=== PATIENT | female | born 1955 | race Caucasian/White ===

== ENCOUNTER 2017-06-20 09:48 | Inpatient (IN) | payer OTHER ==
[~2017-06-20] VITALS: Ht 167.6 cm; Wt 93.0 kg
[2017-06-26] MEDS ORDERED: IBUPROFEN200 M1 PO (15:52)
[2017-06-26] MEDS ORDERED: GARLIC1 EAC1 PO (15:52)
[2017-06-26] MEDS ORDERED: LEVOTHYROXINE50 MCG PO (15:53)
[2017-06-26] MEDS ORDERED: TURMERIC500 M2 PO (15:53)
[2017-06-26] MEDS ORDERED: MULTIVITAMINS1 EAC7 PO (15:53)
[2017-06-26] MEDS ORDERED: VITAMIN C500 M1 PO (15:54)
--- NOTE | 2017-06-26 16:23 | NUR ---
PT HERE TODAY FOR PREOP VISIT. ACCOMPANIED BY HER EUSEBIO. PT STATES SHE HAS A FRONT WHEELED WALKER THAT HAS A SEAT AND BRAKES. THERE ARE EIGHT STEPS INTO THE HOME AND HAND RAILES ON BOTH SIDES. THERE ARE NO STEPS IN THE HOME. THE PATIENT HAS A WALK IN SHOWER, SHOWER BENCH AND A TALL TOILET. THERE IS NO HAND HELD SHOWER HEAD. SPOKE WITH PT ABOUT GETTING A ONE TO HELP WITH SHOWERING ONCE SHE IS HOME. PATIENT WOULD LIKE TO HAVE PHYSICAL THERAPY AT [facility] SINCE SHE LIVES IN [place]. HER IS THE ONE WHO WILL BE TRANSPORTING HER HOME WHEN SHE IS DISCHARGED AND TO HER APPOINTMENTS.
--- NOTE | 2017-07-02 10:53 | NUR ---
07/02/17 1053 Veronica Stinson 1045: OXYGEN SATURATION REMAINS 100% ON 10L VIA MASK. OXYGEN REDUCED TO 8L VIA MASK. 1050: OXGYEN SATURATION REMAINS 100% ON 8L VIA MASK. OXYGEN REDUCED TO 6L VIA MASK. 1052: PT AWAKE. ORAL AIRWAY IS REMOVED BY RN.
--- NOTE | 2017-07-02 12:00 | NUR ---
pt reports ache-y feeling in body but no real pain. drowsy. drifting in and out of sleep. 2L o2 via nc in place. continuous pulse ox on. tranexemic acid infusing now. no continuous IVF ordered.
--- NOTE | 2017-07-02 12:44 | NUR ---
PT RESTING COMFORTABLY IN BED. 2L [address] SATURATING 97%. ORDERED CLEAR LIQUID TRAY.
--- NOTE | 2017-07-02 14:32 | NUR ---
PT UP TO COMMODE 1PA WITH FWW. INCONTINENT EPISODE OF URINE DURING TRANSFER. NEW TEDS/SCDs/SOCKS PROVIDED. BACK TO BED NOW WITH VISITOR AT BEDSIDE.
--- NOTE | 2017-07-02 15:05 | NUR ---
PATIENT SITTING UP IN BED RN AND IN ROOM. FRESH ICE WATER GIVEN. ICE IN CRYO. CALL BUTTON IN REACH. NO OTHER NEEDS AT THIS TIME.
--- NOTE | 2017-07-02 16:35 | NUR ---
PT RESTING QUIETLY IN BED. WILL GET PT UP TO URINATE AGAIN AFTER DINNER. NEW BAG D5LR HUNG NOW
--- NOTE | 2017-07-02 17:49 | NUR ---
2L 02 VIA NC. S/L LAC. TOLERATING REGULAR DIET. 1PA WITH FWW. INCONTINENT AT TIMES. BED CHANGED X2. ANCEF X2 MORE. TORADOL FOR PAIN. PAIN WELL CONTROLLED. NO NAUSEA OR DIZZINESS. WORKED WITH PHYSICAL THERAPY AND WALKED HALLS. TEDS, SCDs, CRYOCUFF IN PLACE. SLEEP APNEA.
--- NOTE | 2017-07-02 18:08 | NUR ---
PATIENT RESTING IN BED WATCHING TV. NO NEEDS AT THIS TIME. FRESH ICE WATER GIVEN. ICE IN CRYO. CALL BUTTON IN REACH.
--- NOTE | 2017-07-02 19:20 | NUR ---
BEDSIDE REPORT RECEIVED FROM OFFGOING RN. DRESSING TO R KNEE C/D/I. PT DENIES PAIN, NAUSEA, OR ITCHING. PT DENIES NEEDS AT THIS TIME CALL LIGHT WITHIN REACH.
--- NOTE | 2017-07-02 20:45 | NUR ---
PT ASSESSMENT COMPLETE. PT DENIES PAIN, NAUSEA, OR ITCHING AT THIS TIME. DRESSING TO R KNEE C/D/I. CMS INTACT. PT REPORTS SLIGHT TINGLING TO BLE'S, ABLE TO ACCURATELY STATE WHERE GENERAL LABORER IS TOUCHING BILATERALLY. LAVERN CHAPARRO, JOSE, HEEL PROTECTORS, CRYOCUFF IN PLACE. IS AT BEDSIDE. KNEE ADJUSTMENT LOCKED OUT ON BED. PT WATER REFILLED. PT DENIES OTHER NEEDS AT THIS TIME. CALL LIGHT WITHIN REACH, PT AGREES TO USE CALL LIGHT FOR NEEDS.
--- NOTE | 2017-07-02 23:46 | NUR ---
pt up to use the bathroom with fww and 1 pa. pt reminded to toe touch weight bear, rather than walking on heel. pt demonstrates appropriate understanding. pt denies pain, states that this is the first time she is "able to feel it". points to area above christy bandage where bruising present. pt assessment complete. pt denies nausea, sob, itching. dressing to r knee c/d/i. cms intact to ble. pt states that there "is not much" numbness or tingling left to ble's, states "it's all wearing off". mariann shirley, scds, heel protectors, cryo cuff in place with ice freshly refilled. is at bedside. knee adjustment locked out on bed. pt on ra, sao2 92%. pt denies other needs at this time. pt places sleep apnea mouth gaurd independently. agrees to use call light for needs, call light within reach.
--- NOTE | 2017-07-03 00:24 | NUR ---
ASSISTED PATIENT TO THE BATHROOM AND BACK TO BED USING WALKER. CRYO CUFF REFILLED AND ICE WATER. CARLOS GLORIA WAS WITH PATIENT.
--- NOTE | 2017-07-03 01:20 | NUR ---
PT RESTING IN BED WITH EYES CLOSED. RESPIRATIONS EVEN AND UNLABORED. SAO2 93%, NO S/SX OF DISTRESS NOTED. PT DOES NOT WAKE WHILE CATHODE RAY TUBE SALVAGE PROCESSOR IN DOORWAY. CALL LIGHT WITHIN PT REACH.
--- NOTE | 2017-07-03 03:01 | NUR ---
PT WOKE EASILY FOR VS TO BE TAKEN. PT DENIES PAIN, NAUSEA, SOB, OR ITCHING. STATES THAT SHE WAS SLIGHTLY CONFUSED ON WAKING DUE TO SCD'S SQUEEZING HER LEGS. STATES THAT IT FELT LIKE HER DOGS WERE IN BED WITH HER. PT ORIENTED AFTER WAKING. PT DENIES NEEDS. CALL LIGHT WITHIN REACH.
--- NOTE | 2017-07-03 05:54 | NUR ---
PT ASSESSMENT COMPLETE. PT UP TO BATHROOM WITH FWW AND 1 PA. PT TOLERATED WELL. RATES PAIN 3/10 TO UPPER ASPECT OF R KNEE. DESCRIBES AN ACHE. SCHEDULED TORADOL ADMINISTERED. PT STATES THAT 3/10 IS TOLERABLE FOR HER. DRESSING TO R KNEE IS C/D/I. CMS INTACT TO BLE'S. PT STATES TINGLING IS RESOLVED. PT WOULD LIKE TO SIT UP IN THE CHAIR WHEN FINISHED IN THE BATHROOM. ALL PRECAUTIONS REPLACED IN CHAIR EXCEPT FOR HEEL PROTECTORS. PT'S LEGS ELEVATED. FEET OVER THE EDGE OF RECLINER FOOT REST. PT'S WATER REFILLED PER REQUEST. PT DENIES OTHER NEEDS. CALL LIGHT WITHIN REACH.
--- NOTE | 2017-07-03 05:59 | NUR ---
PT RESTED WELL THROUGHOUT THE SHIFT. DENIES PAIN, NAUSEA, SOB, AND ITCHING. PT TOLERATED RA, SAO2 90'S THROUGHOUT THE NIGHT. CONTINUOUS PULSE OX IN PLACE. MEPILEX, OPSITE, MERISSA TO R KNEE; C/D/I. TEDS, SCD'S, HEEL PROTECTORS BILATERALLY. CRYO CUFF TO R KNEE. IS AT BEDSIDE. 1 PA WITH FWW. IV SL. PT TOLERATING REGULAR DIET. UO QS.
--- NOTE | 2017-07-03 06:50 | NUR ---
CRYO CUFF REFILLED.
--- NOTE | 2017-07-03 08:17 | OR ---
[facility] [address], [place] [address] Signed DATE OF OPERATION: 07/02/2017 SURGEON: Lynn Proctor MD PREOPERATIVE DIAGNOSIS: Degenerative joint disease, right knee. POSTOPERATIVE DIAGNOSIS: Degenerative joint disease, right knee. PROCEDURE PERFORMED: Right total knee arthroplasty with computer navigation. CHINESE TEACHER: Vonda Whitley PA-C. Vonda was present for the entire case and with critical positioning, retraction, and wound closure. ANESTHESIA: Spinal with adductor canal block. TOURNIQUET TIME: 60 minutes. BLOOD LOSS: Minimal. IMPLANTS: Enedelia Triathlon size 4 with 11 mm insert and a 32 mm patella. BRIEF HISTORY: Ashly is a 61-year-old female with worsening arthritis, was nonresponsive to nonoperative treatment. Risks, benefits, and alternatives of knee replacement were discussed with her and she elected to proceed. DESCRIPTION OF PROCEDURE: Once consent was obtained, she was taken to the operating room. After adequate anesthesia, she was placed on operating room table. All downside pressure points were well-padded. The right leg was placed in well-padded proximal thigh tourniquet placed Electronically Signed By: LYNN PROCTOR MD 07/03/17 0817 PATIENT NAME: ASHLY BROWN OPERATIVE REPORT DATE OF : 57 PHYSICIAN: LYNN PROCTOR MD REPORT #: [id number] REPORT IS CONFIDENTIAL AND NOT TO BE RELEASED WITHOUT AUTHORIZATION [facility] [address], [place] [address] Signed on a hip bump. The leg was then prepped and draped in the standard sterile fashion and exsanguinated using Esmarch bandage. Tourniquet inflated to 250 mmHg. Standard anterior approach through curved incision was taken through skin and subcutaneous tissue. Median parapatellar arthrotomy was performed. The infrapatellar fat pad was excised. The MCL was elevated to sleeve around the posterior medial corner. There was extensive disease in the patellofemoral compartment. Stage 3 disease in the medial compartment. The ACL was transected as was the anterior horns of the meniscus. The navigation guide was pinned to the distal femur and the femur was registered with the computer. The cutting block was then pinned in neutral alignment and the distal femoral cut was made. The femur was sized to a 4. The AP cutting block was pinned in alignment with epicondylar axis. The anterior-posterior and chamfer cuts were made. All osteophytes were removed. Attention was then turned to the proximal tibia. The navigation guide was pinned to the proximal tibia and the tibia was registered with the computer. The cut was made with care taken to protect the patellar tendon and MCL. Bone was excised as were any meniscal remnants. Posterior osteophytes removed off the femur. Posterior release performed. There was an 8 mm loose body in the posteromedial compartment. The flexion and extension gaps were sized and found to be symmetric at 11 mm. The trials were positioned, knee taken through range of motion, and found to be stable. The patella was cut sized and drilled for a 32 patella. The drill holes in the femoral condyles were made. The trial was removed. The proximal tibia was finished using the keel punch. All bone surfaces were pulse lavaged and packed with dry Ray-Dennis. Cement was mixed and reached proper consistency, and displaced all implants on bony surfaces. The tibia was impacted into position first followed by the femur. All excess cement was removed. The polyethylene was snapped into position and the knee was extended nicely and loaded. The patella was clamped into position. Again, all excess cement was removed. Once the cement had hardened, we were flexed the knee and removed any remaining cement with the osteotomes. The periarticular soft tissues were injected with 100 mL ropivacaine and Toradol mixture. The arthrotomy was then closed after we irrigated the knee. A total of 3 L antibiotic irrigation was used. The arthrotomy was closed using #2 Stratafix, subcutaneous tissue with #1, and the skin with mp. The wound was dressed with Mepilex Ag dressing, ABD, and Maxx wrap. She tolerated the procedure well. All sponge, needle, and instrument counts were correct. Lynn Proctor MD BA/MODL /[id number] Electronically Signed By: LYNN PROCTOR MD 07/03/17 0817 PATIENT NAME: ASHLY BROWN OPERATIVE REPORT DATE OF : 57 PHYSICIAN: LYNN PROCTOR MD REPORT #: [id number] REPORT IS CONFIDENTIAL AND NOT TO BE RELEASED WITHOUT AUTHORIZATION [address] [address] Signed Electronically Signed By: LYNN PROCTOR MD 07/03/17 0817 PATIENT NAME: ASHLY BROWN TALITA OPERATIVE REPORT DATE OF : 57 PHYSICIAN: LYNN PROCTOR MD REPORT #: [id number] REPORT IS CONFIDENTIAL AND NOT TO BE RELEASED WITHOUT AUTHORIZATION
--- NOTE | 2017-07-03 08:49 | NUR ---
PATIENT UP IN CHAIR BED BATH, ORAL CARE, AND LINEN CHANGE DONE. CALL BUTTON IN REACH. RN IN ROOM TO SEE PATIENT NO OTHER NEEDS AT THIS TIME.
--- NOTE | 2017-07-03 08:56 | NUR ---
PHYSICAL THERAPY WORKING WITH PATIENT NOW. PATIENT HAS 3/10 PAIN IN RIGHT KNEE. SITTING UP IN RECLINER NOW. ATE 100% OF BREAKFAST. LUNGS CLEAR.
--- NOTE | 2017-07-03 10:00 | NUR ---
PATIENT SITTING UP IN CHAIR WATCHING TV. CALL BUTTON IN REACH. FRESH ICE WATER GIVEN. NO OTHER NEEDS AT THIS TIME.
--- NOTE | 2017-07-03 11:03 | NUR ---
SBA TO BATHROOM AND BACK TO RECLINER. WILL REST IN CHAIR WITH FEET LOWERED. NO PAIN AT THIS TIME. TORADOL GIVEN SCHEDULED.
--- NOTE | 2017-07-03 12:21 | NUR ---
PT SITTING IN CHAIR, FRIENDLY, ALERT AND ORIENTED. SHE HAD JUST FINISHED P.T. AND SEEMED TO BE EXCITED ABOUT HER ACCOMPLISHMENTS SO FAR. THANKED ME FOR VISITING, EXTENDED A BLESSING. WILL CONTINUE TO FOLLOW
--- NOTE | 2017-07-03 12:40 | NUR ---
PATIENT SITTING UP IN CHAIR. FRESH ICE WATER GIVEN. ICE IN CRYO. CALL BUTTON IN REACH. NO OTHER NEEDS AT THIS TIME.
--- NOTE | 2017-07-03 13:45 | NUR ---
PT SITTING UP IN RECLINER. NO IV ACCESS. MD AWARE. INFILTRATED THIS MORNING. OK TO LEAVE OUT. APPETITE GOOD. NO PAIN. TORADOL CHANGED TO ORAL. PT WATCHING TELEVISION OR ON TABLET. NO NEEDS AT THIS TIME. CALL LIGHT IN REACH.
--- NOTE | 2017-07-03 13:56 | NUR ---
PATIENT SITTING UP IN CHAIR WATCHING TV. CALL BUTTON IN REACH. FRESH ICE WATER. NO OTHER NEEDS AT THIS TIME.
--- NOTE | 2017-07-03 17:43 | NUR ---
PT X2 TODAY. TOLERATED WELL. PAIN WELL CONTROLLED. RIGHT KNEE DRESSING C/D/I. NO IV ACCESS-- MD AWARE. PO TORADOL AND OXYCODONE FOR PAIN CONTROL. SBA WITH FWW. PT/OT. ROOM AIR. REGULAR DIET.
--- NOTE | 2017-07-03 18:20 | NUR ---
PATIENT BACK TO BED WITH STAND BY ASSIST WITH FWW. ICE IN CRYO. FRESH ICE WATER GIVEN. NO OTHER NEEDS AT THIS TIME.
--- NOTE | 2017-07-03 20:37 | NUR ---
PT ASSESSMENT COMPLETE. PT STATES THAT SHE "STEPPED WRONG" IN THE BATHROOM, CAUSED AN INCREASE IN R KNEE PAIN. RATES PAIN 6/10. SCHEDULED PAIN MEDICATIONS ADMINISTERED. PT DENIES NAUSEA, SOB, OR ITCHING. PT DENIES BM, REPORTS PASSING FLATUS. DRESSING TO R KNEE C/D/I. CMS INTACT, PT DENIES NUMBNESS OR TINGLING TO EXTREMITIES. LAVERN CHAPARRO, SCD'S, HEEL PROTECTORS, CRYOCUFF IN PLACE. IS AT BEDSIDE. KNEE ADJUSTMENT ON BED LOCKED OUT. PT DENIES OTHER NEEDS AT THIS TIME. CALL LIGHT WITHIN PT REACH.
--- NOTE | 2017-07-03 20:56 | NUR ---
ASSISTED PATIENT TO THE BATHROOM AND BACK TO BED USING WALKER. SCD CRYO BACK ON. CALL LIGHT IS WITHIN REACH.
--- NOTE | 2017-07-03 23:27 | NUR ---
PT RESTING IN BED WITH EYES CLOSED. RESPIRATIONS EVEN AND UNLABORED. NO S/SX OF DISTRESS NOTED. CALL LIGHT WITHIN PT REACH.
--- NOTE | 2017-07-04 00:40 | NUR ---
PT RESTING IN BED WITH EYES CLOSED. RESPIRATIONS EVEN AND UNLABORED. PT APPEARS TO BE SLEEPING. CALL LIGHT WITHIN PT REACH.
--- NOTE | 2017-07-04 01:26 | NUR ---
ASSISTED PATIENT TO THE BATHROOM AND BACK TO BED USING OWN WALKER. PATIENT VOIDED AND HAD QUITE AMOUNT OF LOOSE BOWEL MOVEMENT. CALL BUTTON WITHIN REACH. PATIENT C/O ITCHINESS FROM HEAD TO TOE. ALSO SHE IS ASKING IF SHE IS DUE FOR PAIN MEDS, STATED "FEELS PAIN WHEN MOVING". CARLOS GLORIA NOTIFIED.
--- NOTE | 2017-07-04 01:56 | NUR ---
PT ASSESSMENT COMPLETE. PT RATES PAIN 6/10 AFTER GETTING UP TO USE THE BATHROOM. SCHEDULED PAIN MEDICATIONS ADMINISTERED. PT REPORTS SLIGHT ITCHING. STATES THAT ITCHING IS TOLERABLE AT THIS POINT. INSTRUCTED PT TO INFORM WRTIER IF ITCHING WORSENED OR BECAME UNTOLERABLE. PT STATES AGREEMENT. DRESSING TO R KNEE C/D/I. PEDAL PULSES PRESENT, CMS INTACT BILATERALLY. SLIGHT GENERALIZED EDEMA PRESENT TO R KNEE. PT HAD BM WHEN UP TO BATHROOM. ALL ORDERED PRECAUTIONS REMAIN IN PLACE. PT DENIES OTHER NEEDS AT THIS TIME. CALL LIGHT WITHIN REACH.
--- NOTE | 2017-07-04 03:55 | NUR ---
PT RESTING IN BED WITH EYES CLOSED. RESPIRATIONS EVEN AND UNLABORED. PT APPEARS TO BE SLEEPING. PT DOES NOT WAKE WHILE WRTIER IN DOORWAY. CALL LIGHT WITHIN PT'S REACH.
--- NOTE | 2017-07-04 06:04 | NUR ---
PT UP TO USE BATHROOM WITH 1 PA AND FWW, ASSISTED BACK TO BED WHEN FINISHED. PT TOLERATED WELL. DENIES PAIN UPON RETURNING TO BED. DENIES OTHER NEEDS AT THIS TIME. CALL LIGHT WITHIN REACH.
--- NOTE | 2017-07-04 06:50 | NUR ---
PT REPORTS PAIN 6-01/01 TO R KNEE. STATES THAT IT IS "THROBBING". PRN HYDROCODONE ADMINISTERED. PT DENIES OTHER NEEDS AT THIS TIME. CALL LIGHT WITHIN REACH.
--- NOTE | 2017-07-04 07:00 | NUR ---
BEDSIDE HANDOFF REPORT RECEIVED FROM MFTS RN. PT RESTING COMFORTABLY IN BED. DISCUSSED PLAN OF CARE FOR THE DAY. SCDS AND CRYOCUFF IN PLACE. PT DENIES NEEDS AT THIS TIME.
--- NOTE | 2017-07-04 07:48 | NUR ---
PATIENT UP TO CHAIR WITH STAND BY ASSIST WITH FWW. CRYO ON. CALL BUTTON IN REACH. HANDS AND FACE WASHED. PATIENT REFUSED BATH. WILL BRUSH TEETH AFTER BREAKFAST. NO OTHER NEEDS AT THIS TIME.
[2017-07-04] MEDS ORDERED: MIRALAX17 GM PO (08:22)
[2017-07-04] MEDS ORDERED: HYDROCODON-ACE1 EA11 PO (08:22)
[2017-07-04] MEDS ORDERED: OXYCODONE HCL5 MG PO (08:22)
[2017-07-04] MEDS ORDERED: XARELTO10 MG PO (08:22)
--- NOTE | 2017-07-04 08:45 | NUR ---
PT RESTING IN CHAIR. PT RATING PAIN TOLERABLE, 3/10 TO RIGHT KNEE, GIVEN SCHEDULED OXYCODONE AND TORADOL. CRYOCUFF AND LAVERN HOSE IN PLACE, DRESSING TO RIGHT KNEE INTACT, MERISSA AND MEPILEX. PT TOLERATING REGULAR DIET, DENIES NAUSEA, PT WITH LOOSE STOOL, MIRALAX HELD. PT UP TO BATHROOM WITH STANDBY ASSIST WITH FWW. CMS INATCT, NO EDEMA NOTED TO LOWER LEGS. PT LUNG SOUNDS CLEAR, ON ROOM AIR. DISCUSSED PLAN OF CARE FOR THE DAY, DISCUSSED DISCHARGE. PT RIDE WILL NOT BE AVAILABLE UNTIL THIS AFTERNOON, PT TOLD TO NOTIFIY NURSE WHEN RIDE AVAILABLE. PT DENIES OTHER NEEDS AT THIS TIME.
--- NOTE | 2017-07-04 10:00 | NUR ---
PT COMPLETED PHYSICAL THERPAY, WALKED IN MAR. PT REQUESTIGN FRESH WATER, PROVIDED. PT RATING PAIN 5/10 WITH ACTIVITY, 3/10 AT REST. PT DENIES NEEDS AT THIS TIME.
--- NOTE | 2017-07-04 10:41 | NUR ---
VS AND I&O'S TAKEN AND DOCUMENTED. PT HAS WATER AND CALL LIGHT IN REACH. CRYO CUFF REFILLED.
--- NOTE | 2017-07-04 11:30 | NUR ---
PATIENT SITTING UP IN CHAIR EATING LUNCH. NO NEEDS AT THIS TIME. CALL BUTTON IN REACH.
--- NOTE | 2017-07-04 11:39 | NUR ---
PT HAD REQUESTED PT AT THE CLINIC. I CALLED AND THEY CANNOT SEE HER FOR ALMOST2 WEEKS, ASKED DR SIERRA IF THAT WAS OK AND HE SAID NO SHE COULD NOT WAIT TIL THEN. I THEN WENT IN AND TALKED WITH THE PT AND SHE STATES SHE WOULD LIKE TO GO TO [facility] IN [place]. I SET UP AN APPT FOR HER FOR Sunday THERE, INFORMED PT AND SHE AGREED THAT WOULD BE FINE. FAXED CHART NOTES TO [facility] PHYSICAL THERAPY INCLUDING FACESHEET, ORDER, H AND P, OP NOTE, CONSULT, PROG NOTES, PT AND OT EVAL AND NOTES, RECIEVED CONFIRMATION OF THE FAX.
--- NOTE | 2017-07-04 11:54 | NUR ---
DRESSING CHANGED TO RIGH KNEE INCISION, INCISION WITH EDGES WELL APPROXIMATED, STATPLES IN PLACE, WITHOUT DRAINAGE OR REDNESS. DRESSED WITH NEW MEPILEX AND SECURED WITH MERISSA BANDAGE. INSTRUCTED PT THAT SHE MAY REMOVE DRESSING IN THREE DAYS, TO COVER DRESSING WHILE SHOWERING AND TO WEAR LAVERN HOSE UNTIL SHE IS SEEN FOR FOLLOW UP APPOINTMENT. PT SBA TO BATHROOM. CMS INTACT, PULSES PALPABLE. PT ON ROOM AIR, TOLERAITN REGULAR DIET. AWAITING RIDE FOR DISCHARGE. PT DENIES OTHER NEEDS AT THIS TIME.
--- NOTE | 2017-07-04 12:58 | NUR ---
PT CALLED, RIDE WILL BE ARRIVING SOON. PT DRESSED, BELONGINGS COLLECTED.
== END 2017-07-04 14:00 | disposition home or self-care (01) | DRG 470 ==
LOC: MS 07-02 07:00 → DSVR 07-02 07:00 → MS 07-02 09:00
PROVIDERS: ADMIT Specialist
PROC: 0SRC0J9 Replacement of Right Knee Joint with Synthetic Substitute, Cemented, Open Approach (ICD-10-PCS; principal; 2017-07-02 09:00)
DX: M17.11 Unilateral primary osteoarthritis, right knee (principal); E03.9 Hypothyroidism, unspecified
CPT/HCPCS: 01402; 36415; 64447; 76942; 80048; 85025; 94762; 97110; 97116; 97161; C1713; J0690; J0735; J1100; J1885; J2250; J2274; J2405; J2704; J2765; J3010; J7120